=== PATIENT | female | born 1985 | race Caucasian/White ===

== ENCOUNTER 2016-10-02 06:01 | Emergency (ER) | payer MEDICAID, OTHER ==
[~2016-10-02] VITALS: Ht 165.1 cm; Wt 123.4 kg
[~2016-10-02 06:01] MED LIST: OMEPRAZOLE20 M3 PO; OMEPRAZOLE40 MG PO
[2016-10-02 06:08] VITALS: BP 117/75
--- NOTE | 2016-10-02 06:15 | NUR ---
AMBULATED TO ER BED 8
--- NOTE | 2016-10-02 06:26 | NUR ---
pt states 9 1/2 2weeks , started bleeding at 5:30am this am, saturated 1 maxi pad. DENIES N/V/D; SKIN IS PINK/WARM/DRY; AAOX4 WITH EVEN AND STEADY GAIT; LUNGS CLEAR BL; HR EVEN AND REGULAR; PT DENIES ANY FEVER, CP, SOB, OR COUGH AT THIS TIME; PATIENT STATES PAIN OF 0/10 AT THIS TIME; VSS; PATIENT POSITIONED FOR COMFORT; HOB ELEVATED; BEDRAILS UP X2; BED DOWN. ER MD MADE AWARE OF PT STATUS.
--- NOTE | 2016-10-02 06:28 | NUR ---
notified of blood sugar results of 332
[2016-10-02] MEDS ORDERED: NACL 0.9% 1,000 ML IV ONE (06:30)
[2016-10-02] MEDS ORDERED: INSULIN HUMAN REGULAR 100 UNITS/ML 10 ML VIAL IVP ONE (06:30)
[2016-10-02] MEDS ORDERED: NACL 0.9% 500 ML IV ONE (06:30)
--- NOTE | 2016-10-02 06:35 | NUR ---
us at bedside
--- NOTE | 2016-10-02 07:07 | NUR ---
Dr. Brower evaluating patient at bedside.
--- NOTE | 2016-10-02 07:10 | NUR ---
Pt found resting comfortably in bed 8. No visible signs of distress. Pt has IV fluids running.
--- NOTE | 2016-10-02 07:31 | NUR ---
Patient ambulated to restroom with steady gait.
--- NOTE | 2016-10-02 07:36 | NUR ---
Pt states she had another saturated pad full of blood. Dr. Polk made aware.
--- NOTE | 2016-10-02 07:45 | NUR ---
SINTIA MADE AWARE OF TRANSVAGINAL ULTRASOUND REPORT,CALLED IN BY BRIANNA.
--- NOTE | 2016-10-02 07:52 | NUR ---
Pt c/o severe nausea, no vomiting noted. Pt also c/o 9/[address] Polk made aware.
[2016-10-02] MEDS ORDERED: ONDANSETRON 4 MG/2 ML VIAL IVP ONE (07:55)
[2016-10-02] MEDS ORDERED: IBUPROFEN 800 MG TAB PO ONE (07:55)
--- NOTE | 2016-10-02 08:10 | NUR ---
Dr. Polk at bedside speaking with patient.
--- NOTE | 2016-10-02 08:17 | NUR ---
Dr. Polk at bedside with JASON Deleon to do pelvic exam
--- NOTE | 2016-10-02 08:20 | NUR ---
Verbal order for Dr. Polk to have IV fluids administered as a wide open bolus instead of 100ml/hr. Orders executed. Pt tolerating well.
--- NOTE | 2016-10-02 09:27 | NUR ---
RHOGAM INJECTION ADMINSTERED TO RIGHT GLUTEUS AUGUST DEEP IM PER DR. GARCIA ORDER. PT TOLERATED WELL.
--- NOTE | 2016-10-02 09:38 | NUR ---
IV removed, catheter intact and site benign. Applied folded 4x4 gauze and tape to stop bleeding.
--- NOTE | 2016-10-02 09:39 | NUR ---
Pt provided with lab results and US report. Pt sign authorization to release healthcare information and placed in chart. Pt provided with a new sanitary pad and disposable garmets. Will continue to monitor patient for adverse reactions to Rhogam injection. VSS.
[2016-10-02 09:50] VITALS: BP 110/65
--- NOTE | 2016-10-02 09:50 | NUR ---
PATIENT KEPT ID BRACELETS
--- NOTE | 2016-10-02 09:50 | NUR ---
Chart checked and completed. The patient's care was reviewed and supervised by Eben Umaña RN.
--- NOTE | 2016-10-02 09:50 | NUR ---
NADR to Rhogam at this time. No chest pain, no SOB. Pt appears calm and in no distress. VSS.
== END 2016-10-02 09:50 | disposition home or self-care (01) ==
LOC: MED 06:01
DX: O03.9 Complete or unspecified spontaneous abortion without complication (principal); O23.41 Unspecified infection of urinary tract in pregnancy, first trimester; O24.419 Gestational diabetes mellitus in pregnancy, unspecified control; O99.611 Diseases of the digestive system complicating pregnancy, first trimester; K21.9 Gastro-esophageal reflux disease without esophagitis; Z3A.09 9 weeks gestation of pregnancy; Z88.0 Allergy status to penicillin; Z88.2 Allergy status to sulfonamides; Z88.8 Allergy status to other drugs, medicaments and biological substances
CPT/HCPCS: 36415; 76801; 76817; 80048; 81001; 81025; 84702; 85025; 86850; 86886; 86900; 86901; 87086; 96361; 96374; 96375; 99285; J1815; J2405; J2790; J7030; Q0092

== ENCOUNTER 2016-10-04 21:24 | Emergency (ER) | payer OTHER ==
[~2016-10-04] VITALS: Ht 165.1 cm; Wt 123.4 kg
[2016-10-04 21:26] VITALS: BP 129/70
--- NOTE | 2016-10-04 22:03 | NUR ---
PT TAKEN TO BED 4
--- NOTE | 2016-10-04 22:04 | NUR ---
PT IS 31/F BIB BOYFRIEND TO ED WITH C/O VAG BLEEDING WITH BLOOD CLOTS SINCE WEDNESDAY. PT STATES MED HX OF GERD. PT WAS HERE ON WEDNESDAY CAME BACK TO RETURN TODAY DIRECTED. DENIES V/D; SKIN IS PINK/WARM/DRY; AAOX4 WITH EVEN AND STEADY GAIT; LUNGS CLEAR BL; HR EVEN AND REGULAR; PT DENIES ANY FEVER, CP, SOB, OR COUGH AT THIS TIME; PATIENT STATES PAIN OF 8/10 AT THIS TIME; VSS; PATIENT POSITIONED FOR COMFORT; HOB ELEVATED; BEDRAILS UP X2; BED DOWN. ER MD MADE AWARE OF PT STATUS.
--- NOTE | 2016-10-04 22:38 | NUR ---
Dr. Hutchins evaluating patient at bedside.
--- NOTE | 2016-10-04 22:39 | NUR ---
CHAPERONED FOR DR RUELAS DURING PELVIC EXAM
[2016-10-04 22:46] VITALS: BP 122/59
--- NOTE | 2016-10-04 22:46 | NUR ---
Patient discharged with v/s stable. Written and verbal after care instructions given and explained. Patient alert, oriented and verbalized understanding of instructions. Ambulatory with steady gait. All questions addressed prior to discharge. ID band removed. Patient advised to follow up with PMD. NO Rx WERE given. Patient educated on indication of medication including possible reaction and side effects. Opportunity to ask questions provided and answered.
== END 2016-10-04 22:46 | disposition home or self-care (01) ==
LOC: MED 21:24
DX: N93.9 Abnormal uterine and vaginal bleeding, unspecified (principal); K21.9 Gastro-esophageal reflux disease without esophagitis; Z88.0 Allergy status to penicillin; Z88.1 Allergy status to other antibiotic agents; Z88.8 Allergy status to other drugs, medicaments and biological substances; Z98.890 Other specified postprocedural states

== ENCOUNTER 2017-03-08 14:12 | Emergency (ER) | payer OTHER ==
[~2017-03-08] VITALS: Ht 165.1 cm; Wt 108.0 kg
[~2017-03-08 14:12] MED LIST changes: +OMEP40EC14 PO; -OMEPRAZOLE20 M3 PO; -OMEPRAZOLE40 MG PO
[2017-03-08 14:45] VITALS: BP 130/107
--- NOTE | 2017-03-08 14:48 | NUR ---
PATIENT AMBULATED TO BED 7
--- NOTE | 2017-03-08 14:50 | NUR ---
32 Y/O FEMALE PATIENT PRESENTS TO ED WITH CHIEF COMPLAINTS OF EAR X 3 DAYS. PT STATES THAT TODAY IS WORST AND CAN NOT EVEN TURN TO THE RIGHT. . DENIES N/V/D; SKIN IS PINK/WARM/DRY; AAOX4 WITH EVEN AND STEADY GAIT; LUNGS CLEAR BL; HR EVEN AND REGULAR; PT DENIES ANY FEVER, CP, SOB, OR COUGH AT THIS TIME; PATIENT STATES PAIN OF 10/10 AT THIS TIME; VSS; PATIENT POSITIONED FOR COMFORT; HOB ELEVATED; BEDRAILS UP X2; BED DOWN. ER MD MADE AWARE OF PT STATUS.
--- NOTE | 2017-03-08 15:05 | NUR ---
SEEN AND EVALUATED BY STEVE TOMAS AT BEDSIDE.
[2017-03-08] MEDS ORDERED: KETOROLAC 30 MG/ML VIAL IM ONE (15:10)
--- NOTE | 2017-03-08 15:17 | NUR ---
TORADOL IM GIVEN. PATIENT TOLERATED WELL.
[2017-03-08 15:37] VITALS: BP 112/60
== END 2017-03-08 15:37 | disposition home or self-care (01) ==
LOC: MED 14:12
DX: H65.93 Unspecified nonsuppurative otitis media, bilateral (principal); S16.1XXA Strain of muscle, fascia and tendon at neck level, initial encounter; H61.22 Impacted cerumen, left ear; K21.9 Gastro-esophageal reflux disease without esophagitis; Z79.899 Other long term (current) drug therapy; Z88.0 Allergy status to penicillin; Z88.1 Allergy status to other antibiotic agents; Z88.2 Allergy status to sulfonamides; Z88.8 Allergy status to other drugs, medicaments and biological substances; X58.XXXA Exposure to other specified factors, initial encounter; Y93.89 Activity, other specified; Y92.89 Other specified places as the place of occurrence of the external cause; Y99.8 Other external cause status
CPT/HCPCS: 81025; 96372; 99283; J1885

== ENCOUNTER 2017-05-04 12:11 | Emergency (ER) | payer OTHER ==
[~2017-05-04] VITALS: Ht 165.1 cm; Wt 103.9 kg
[2017-05-04 12:40] VITALS: BP 131/71
--- NOTE | 2017-05-04 12:44 | NUR ---
Patient ambulated to bed 08.
--- NOTE | 2017-05-04 12:45 | NUR ---
32/F BIB SELF C/O LOWER BACK PAIN & RADIATES TO EPIGASTRIC PAIN & N/V X LAST NIGHT. SKIN IS PINK/WARM/DRY; AAOX4 WITH EVEN AND STEADY GAIT; LUNGS CLEAR BL; HR EVEN AND REGULAR; PT DENIES ANY FEVER OR COUGH AT THIS TIME; PATIENT STATES PAIN OF 8/10 AT THIS TIME; VSS; PATIENT POSITIONED FOR COMFORT; HOB ELEVATED; BEDRAILS UP X2; BED DOWN. ER MD MADE AWARE OF PT STATUS.
--- NOTE | 2017-05-04 13:20 | NUR ---
Patient being evaluated by dr gaines at bedside.
[2017-05-04] MEDS ORDERED: DICYCLOMINE HCL LIQUID 10 MG/5 ML UDC PO ONE (13:35)
[2017-05-04] MEDS ORDERED: LIDOCAINE VISCOUS 2% 20 ML UDC PO ONE (13:35)
[2017-05-04] MEDS ORDERED: ALUMINUM HYD/MAG/SIMETHICONE 30 ML UDC PO ONE (13:35)
[2017-05-04] MEDS ORDERED: NACL 0.9% 500 ML IV ONE (14:14)
[2017-05-04] MEDS ORDERED: KETOROLAC 30 MG/ML VIAL IVP ONE (14:15)
[2017-05-04] MEDS ORDERED: ONDANSETRON 4 MG/2 ML VIAL IVP ONE (14:15)
--- NOTE | 2017-05-04 14:15 | NUR ---
Patient being reevaluated by dr gaines at bedside.
--- NOTE | 2017-05-04 14:33 | NUR ---
Patient taken to CT via randa thomas.
[2017-05-04 14:39] LABS: BASOPHILS # (AUTO) 0.1 K/uL (0.00-0.22); BASOPHILS % (AUTO) 1.3 % (0.0-2.0); EOSINOPHILS # (AUTO) 0.1 K/uL (0-0.4); EOSINOPHILS % (AUTO) 0.9 % (0.0-4.0); HEMATOCRIT 39.9 % (36-48); HEMOGLOBIN 12.7 g/dL (12.0-16.0); LYMPHOCYTES # (AUTO) 1.6 K/uL (2.5-16.5); LYMPHOCYTES % (AUTO) 19.5 % (20.5-51.1); MEAN CORPUSCULAR HEMOGLOBIN 25 pg (27-31); MEAN CORPUSCULAR HGB CONC 32 g/dL (33-37); MEAN CORPUSCULAR VOLUME 80 fL (80-94); MONOCYTES # (AUTO) 0.7 K/uL (0.8-1.0); MONOCYTES % (AUTO) 8.3 % (1.7-9.3); NEUTROPHILS # (AUTO) 5.9 K/uL (1.8-7.7); PLATELET COUNT (AUTO) 273 K/uL (140-450); RED BLOOD CELL COUNT(AUTO) 5.01 MIL/uL (4.20-5.40); WHITE BLOOD COUNT (AUTO) 8.4 K/uL (4.8-10.8)
--- NOTE | 2017-05-04 14:41 | NUR ---
Patient back [facility] CT [facility].
[2017-05-04 14:50] LABS: ANION GAP 15.5 (8-16); CARBON DIOXIDE 23.5 mmol/L (21-32); CREATININE 0.9 mg/dL (0.6-1.3)
[2017-05-04 14:55] LABS: ALBUMIN 3.6 g/dL (3.4-5.0); TOTAL BILIRUBIN 0.4 mg/dL (0.0-1.0)
[2017-05-04 16:01] VITALS: BP 103/60
--- NOTE | 2017-05-04 16:01 | NUR ---
Patient discharged with v/s stable. Written and verbal after care instructions given and explained. Patient alert, oriented and verbalized understanding of instructions. Ambulatory with steady gait. All questions addressed prior to discharge. ID band removed. Patient advised to follow up with PMD. Rx of TRAMADOL& OMEPRAZOLE given. Patient educated on indication of medication including possible reaction and side effects. Opportunity to ask questions provided and answered.
== END 2017-05-04 16:01 | disposition home or self-care (01) ==
LOC: MED 12:11
DX: K29.00 Acute gastritis without bleeding (principal); R03.0 Elevated blood-pressure reading, without diagnosis of hypertension; K21.9 Gastro-esophageal reflux disease without esophagitis; Z88.0 Allergy status to penicillin; Z88.1 Allergy status to other antibiotic agents; Z88.2 Allergy status to sulfonamides; Z90.89 Acquired absence of other organs
CPT/HCPCS: 36415; 74176; 80053; 83690; 85025; 96361; 96374; 96375; 99285; J1885; J2405; J7030; 81002; 81025

== ENCOUNTER 2017-11-27 19:35 | Emergency (ER) | payer OTHER ==
[~2017-11-27] VITALS: Ht 165.1 cm; Wt 104.3 kg
[2017-11-27 19:37] VITALS: BP 141/70
--- NOTE | 2017-11-27 19:48 | NUR ---
TO BED #12 AMBULATORY, NO BLEEDING AT THIS TIME.
--- NOTE | 2017-11-27 19:55 | NUR ---
32/F CAME IN W C/O SMALL LAC TO LEFT FOREARM S/P HITTING THE ARM ON METAL X 1730 TODAY. MINIMAL BLEEDING NOTED, CONTROLLED, +PMSC TO LT ARM. PMH: DM
[2017-11-27] MEDS ORDERED: HYDROcodone/APAP 10/325 MG 1 TAB TAB PO STA (20:29)
[2017-11-27] MEDS ORDERED: LIDOCAINE 1% 500 MG/50 ML VIAL INJ ONE (20:30)
[2017-11-27] MEDS ORDERED: NEOMYCIN/POLYMYXIN/BACITRACIN 0.9 GM/1 PKT TP ONE (20:30)
[2017-11-27] MEDS ORDERED: LIDOCAINE MPF 1% - **ER/OR** 10 ML ONE (20:38)
--- NOTE | 2017-11-27 22:00 | NUR ---
Patient has a ~3 cm laceration to LFA. Dr. HERNANDEZ applied sutures using sterile technique. Edges well approximated. Site cleansed with NS/BETADINE. No bleeding noted. Pt tolerated well.
--- NOTE | 2017-11-27 22:17 | NUR ---
Patient discharged with v/s stable. Written and verbal after care instructions given and explained. Patient verbalized understanding. Ambulatory with steady gait. All questions addressed prior to discharge. Advised to follow up with PMD.
[2017-11-27 22:25] VITALS: BP 128/72
== END 2017-11-27 22:17 | disposition home or self-care (01) ==
LOC: MED 19:35
DX: S51.812A Laceration without foreign body of left forearm, initial encounter (principal); E11.9 Type 2 diabetes mellitus without complications; K21.9 Gastro-esophageal reflux disease without esophagitis; Z79.899 Other long term (current) drug therapy; Z88.0 Allergy status to penicillin; Z88.2 Allergy status to sulfonamides; Z88.1 Allergy status to other antibiotic agents; Z88.8 Allergy status to other drugs, medicaments and biological substances; W26.8XXA Contact with other sharp object(s), not elsewhere classified, initial encounter; Y93.89 Activity, other specified; Y92.89 Other specified places as the place of occurrence of the external cause; Y99.8 Other external cause status
CPT/HCPCS: 12001; 99283; J2001